=== PATIENT | female | born 1990 | race Caucasian/White ===

== ENCOUNTER 2020-03-04 13:00 | Emergency (ER) | payer MEDICARE, MEDICAID, SELFPAY ==
[2020-03-04 13:09] VITALS: BP 142/73; PULSE 98; RESP 20; TEMP 36.2; O2SAT 99
== END 2020-03-04 13:45 | disposition left against medical advice (07) ==
LOC: EXPBETH 13:06
PROVIDERS: Emergency Provider Nurse Practitioner Family; PCP Family Medicine
DX: Z53.21 Procedure and treatment not carried out due to patient leaving prior to being seen by health care provider (principal)
CPT/HCPCS: 99199

== ENCOUNTER 2021-12-25 18:48 | Emergency (ER) | payer OTHER, SELFPAY ==
[2021-12-25 18:57] VITALS: BP 141/87; PULSE 108; RESP 20; TEMP 37.4; O2SAT 99
--- NOTE | 2021-12-25 19:49 | ED.EYEPROB ---
HPI - Eye Problem General Chief complaint: Eye Problems Stated complaint: right eye swollen and red Time Seen by Provider: 12/25/21 19:47 Source: patient and RN notes reviewed Mode of arrival: ambulatory Limitations: no limitations History of Present Illness HPI Narrative: 31-year-old female presents with concern for right lower eyelid is swollen and red and has had purulent discharge. Reports she had eyelash glue on the eye and symptoms started after that. She denies any vision changes. She reports she has been expressing purulent drainage. chief complaint: eye pain Related Data Allergies Allergy/AdvReac Type Severity Reaction Status Date / Time tramadol AdvReac Severe Nausea and Verified 12/25/21 19:43 Vomiting Review of Systems Review of Systems: CONSTITUTIONAL: Denies malaise, chills, sweats, or fever. EYES: Denies visual changes. Reports redness, pain, discharge to the right lower eyelid. ENT: Denies rhinorrhea, congestion, sinus pain, otalgia or sore throat. SKIN: Denies rash or itching. NEUROLOGIC: Denies numbness, weakness, or headache. PSYCHIATRIC: Denies anxiety or depression. All systems reviewed & are unremarkable except as noted in HPI and below PMFSH Past Medical History Medical History (Updated 12/25/21 @ 19:53 by Kathryn Saravia NP) Anxiety Depression Comments At time of signature, agree with nursing past medical, surgical, social and family history. There is no relevant family history pertinent to the presenting complaint Exam Narrative: GENERAL: Well-appearing, well-nourished, and in no acute distress. HEAD: Normocephalic, atraumatic. EYES: PERRLA, sclera clear, and EOMI. No nystagmus. Right sclera and conjunctivae injected with right lower eyelid swelling and tenderness with purulent discharge visible. lower eyelid unremarkable, no periorbital edema noted ENT: Nares clear, turbinates pink, no rhinorrhea or epistaxis. Mucous membranes moist. TM pearly pineda with sharp light reflex bilaterally; no tragal tenderness. NECK: Supple. CHEST: No respiratory distress. Speaks in full sentences. HEART: Regular rate and rhythm. SKIN: Warm, dry, no visible rash. NEURO: Alert and oriented x3. PSYCH: Normal mood and affect Course Course Emergency Course: Patient is aware of diagnosis, understands and agrees to treatment plan. Anticipatory guidance given. Patient agrees to follow-up as directed and is aware of reasons to seek care at the emergency department. Portions of this record may have been created with voice recognition software Level of Care: Express Care Visit Vital Signs Vital signs: Vital Signs Temperature 99.3 F 12/25/21 18:57 Pulse Rate 108 H 12/25/21 18:57 Respiratory Rate 20 12/25/21 18:57 Blood Pressure 141/87 H 12/25/21 18:57 Pulse Oximetry 99 12/25/21 18:57 Temperature 99.3 F 12/25/21 18:57 Pulse Rate 108 H 12/25/21 18:57 Respiratory Rate 20 12/25/21 18:57 Blood Pressure 141/87 H 12/25/21 18:57 Pulse Oximetry 99 12/25/21 18:57 Reviewed. MDM - Eye Problem MDM Narrative Medical decision making narrative: Consideration of the following conditions may be warranted for the presenting problem, they are not final diagnoses: Bacterial conjunctivitis, allergic conjunctivitis, viral conjunctivitis, foreign body, blepharitis, chalazion, hordeolum, corneal abrasion, preseptal cellulitis, orbital cellulitis. No evidence of proptosis, ophthalmoplegia, vision loss, pain with eye movement. Exam findings show no acute concerns or changes; patient is non-toxic appearing and is in no distress. Patient is appropriate for outpatient treatment and follow-up. Critical Care Time Critical Care Time Critical Care Time: No Discharge Plan Discharge Clinical Impression: Infection of eyelid Patient Disposition: Home, Self-Care Condition: Stable Instructions: Antibiotic Form, Conjunctivitis (ED) Additional Instructions: Take antibiotics as directed,
== END 2021-12-25 19:57 | disposition home or self-care (01) ==
PROVIDERS: Emergency Provider Nurse Practitioner
DX: H01.9 Unspecified inflammation of eyelid (principal)
CPT/HCPCS: 99213; G0463

== ENCOUNTER 2024-02-03 16:53 | Emergency (ER) | payer OTHER, SELFPAY ==
[2024-02-03 17:00] VITALS: BP 163/96; PULSE 109; RESP 16; TEMP 37.1; O2SAT 98
--- NOTE | 2024-02-03 18:04 | ED.GENADULT ---
HPI - General Adult General Chief complaint: Skin/Abscess/Foreign Body Stated complaint: Leg Tattoo Infection Source: patient Mode of arrival: ambulatory Limitations: no limitations History of Present Illness HPI narrative: Patient presents for evaluation of skin changes to left lower extremity for last 3 days. She indicates she had a tattoo placed 4 days ago when the symptoms started thereafter. She states the tattoo was not placed in an authorized shop however the equipment was sterile. She indicates she has a history of MRSA. She denies any fever, chills, nausea, vomiting. She is not diabetic. She reports some mild burning pain in the affected area. Related Data Allergies Allergy/AdvReac Type Severity Reaction Status Date / Time tramadol AdvReac Severe Nausea and Verified 02/03/24 17:09 Vomiting Review of Systems Review of Systems: CONSTITUTIONAL: Denies fever, chills, or sweats. EYES: Denies visual changes, redness, or discharge. ENT: Denies rhinorrhea, congestion, sore throat, or otalgia. CARDIOVASCULAR: Denies chest pain, palpitations, or edema. RESPIRATORY: Denies cough or dyspnea. GASTROINTESTINAL: Denies abdominal pain, nausea, vomiting, or diarrhea. GENITOURINARY: Denies dysuria or hematuria. SKIN: Reports redness and drainage to the skin of the left lower leg the site of a tattoo that was recently placed. MUSCULOSKELETAL: Denies back pain, joint pain, or myalgia. NEUROLOGIC: Denies headache, numbness, dizziness, or weakness. PSYCHIATRIC: Denies anxiety or depression. PMFSH Past Medical History Medical History Anxiety Depression Surgical History Surgical History History of Family History Family History Mother Family history non-contributory Social History Social History Gender identity (if verbalized by the patient): Female Spiritual care concerns: No Exam Narrative: GENERAL: Well-appearing, well-nourished, and in no acute distress. HEAD: Normocephalic, atraumatic. EYES: PERRLA and EOMI. ENT: Nares clear, no rhinorrhea or epistaxis. Mucous membranes moist. Oropharynx without tonsillar hypertrophy exudate or other lesions. Bilateral TMs pearly pineda nonbulging NECK: Supple. No adenopathy or masses. No carotid bruits or JVD CHEST: Clear to auscultation. No respiratory distress. No wheezes rales or rhonchi HEART: Regular rate and rhythm. No murmur heard. Normal peripheral pulses. ABDOMEN: Soft, nontender, nondistended, normal active bowel sounds. EXTREMITIES: Normal range of motion. No edema. SKIN: There are two scabbed lesions to the left lower leg overlying a tattoo with mild surrounding redness. There is an approximately 1 cm erythematous excoriated area to the left lower leg overlying the same tattoo NEURO: No focal deficits. Alert and oriented x3. PSYCH: Normal mood and affect. Course Course Emergency Course: This is a 33-year-old female who presented for evaluation of skin changes to the left lower leg after recently having a tattoo placed. Will cover her with Keflex and Bactrim. 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 She should follow up outpatient for further evaluation treatment go to the emergency department for worsening symptoms. Patient in agreement with plan of care. Level of Care: Express Care Visit Vital Signs Vital signs: Vital Signs Temperature 37.1 C 02/03/24 17:00 Pulse Rate 109 H 02/03/24 17:00 Respiratory Rate 16 02/03/24 17:00 Blood Pressure 163/96 H 02/03/24 17:00 Pulse Oximetry 98 02/03/24 17:00 Oxygen Delivery Room Air 02/03/24 17:00 Temperature 37.1 C 02/03/24 17:00 Pulse Rate 109 H 02/03/24 17:00 Respiratory
== END 2024-02-03 17:34 | disposition home or self-care (01) ==
PROVIDERS: Emergency Provider Nurse Practitioner
DX: L03.116 Cellulitis of left lower limb (principal); L81.8 Other specified disorders of pigmentation
CPT/HCPCS: 87070; 87075; 87077; 87181; 87205; 99213; G0463